=== PATIENT | female | born 1975 | race Caucasian/White ===

== ENCOUNTER 2022-01-30 12:21 | Emergency (ER) | payer OTHER, MEDICAID, SELFPAY ==
[2022-01-30 12:35] VITALS: BP 131/83; PULSE 77; RESP 18; TEMP 36.6; O2SAT 98; BMI 39.9
--- NOTE | 2022-01-30 12:36 | W.ED.PSYCHS ---
HPI - Psych General: Chief Complaint: Psychiatric Symptoms Stated Complaint: psych evalutions Time Seen by Provider: 01/30/22 12:36 History of Present Illness: Ms. Talbot is a 46-year-old lady with reported past psychiatric history of schizoaffective disorder presenting to the emergency department due to history of suicidal thoughts. She reports most of her recent history has been in [place] though she was hospitalized in [place] for approximately 1 week for psychiatric reasons. She received Invega injection which has helped however she left her Depakote and has not had this for approximately 1 week. She reports worsening auditory hallucinations and occasional thoughts of suicide though currently denies any plan or suicidal ideation. She went to [facility] to ask about medication refill and was referred to the emergency department. Intensity symptoms is moderate. Course is worsened. Denies other medical complaints or injuries. No other specific changes in health, exacerbating, or alleviating factors identified. Onset (ago): day(s) Duration: getting worse History of same: Yes Context: not taking psychiatric medications Associated psychiatric symptoms: depression, suicidal ideation, auditory hallucinations and visual hallucinations Review of Systems General: Reports: 10 or more systems reviewed and unremarkable except in HPI and below PFSH ED PFSH: Medical History Depression Social History Substance/Drug Use: unknown Physical Exam Const: COMMON NORMALS: alert GENERAL APPEARANCE: cooperative and well developed HENMT: COMMON NORMALS: normocephalic and atraumatic HEAD & SCALP: normocephalic and atraumatic Eye: COMMON NORMALS: conjunctivae normal CONJUNCTIVA: Yes conjunctivae normal SCLERA: sclerae normal Neck/C-Spine: COMMON NORMALS: supple GENERAL: Yes trachea midline Resp: COMMON NORMALS: clear to auscultation bilaterally EFFORT & INSPECTION: Yes able to speak in complete sentences AUSCULTATION: clear to auscultation bilaterally Cardio: COMMON NORMALS: regular rate and regular rhythm RATE: regular rate RHYTHM: regular rhythm GI: COMMON NORMALS: Soft to palpation PALPATION: Yes Soft to palpation and No Tenderness to palpation present (GI) Extremity: GENERAL: Yes normal exam except as noted and No edema Neuro: COMMON NORMALS: moves all extremities SENSORIUM/ORIENTATION: Yes alert and No Orientation impaired Psych: COMMON NORMALS: mental status grossly normal and Normal thought process present THOUGHT PROCESS: Normal thought process present Course Vital Signs: Vital signs: Vital Signs Temperature 97.8 F 01/30/22 12:35 Pulse Rate 77 01/30/22 12:35 Respiratory Rate 18 01/30/22 12:35 Blood Pressure 131/83 01/30/22 12:35 Pulse Oximetry 98 01/30/22 12:35 Oxygen Delivery Me thod 01/30/22 12:35 MDM - Psych Medical Decision Making 46-year-old lady with psychiatric history presenting to the emergency department for mental health exam. The patient is calm and cooperative, speech is linear and goal oriented, she does not appear to interact with internal stimuli, she denies suicidal or homicidal ideation. I requested outside records for collateral information and initially the patient was unsure about desire to be admitted however subsequently expressed desire to leave. I do not believe based on provided information and information available at time that the patient cannot be held against her will. I will plan to refill her medications however she is leaving AGAINST MEDICAL ADVICE. The patient is oriented to person, place, and time, has the capacity to make decisions regarding the medical care offered. The patient speaks coherently and exhibits no evidence of having an altered level of consciousness or alcohol or drug intoxication to a point that would impair judgment. They respond knowingly to questions about recommended treatment and alternate treatments including no further testing or treatment; participate in diagnostic and treatment decisions by means of rational thought processes; and understand the items of minimum basic medical treatment information with respect to that treatment (the nature and seriousness of the illness, the nature of the treatment, the probable degree and duration of any benefits and risks of any medical intervention that is being recommended, and the consequences of lack of treatment, and the nature, risks, and benefits of any reasonable alternatives). Discharge instructions were provided to the patient. The patient understands they are welcome to return to the hospital at any time to receive the recommended care or any other care at any time, regardless of their ability to pay for such care. Medical Records I reviewed the patient's medical records. Lab Data I reviewed the patient's lab results. Discharge Plan Discharge Patient Disposition: Left Against Medical Advice Clinical Impression: Schizoaffective disorder Condition: Stable Prescriptions: Continued Depakote ER 500 mg Tablet Extended Release 24 Hr 1,000 mg PO DAILY Qty: 30 1RF duloxetine 30 mg Capsule,Delayed Release(Dr/Ec) 30 mg PO BID Qty: 60 1RF No Action clonazepam 0.5 mg Tablet 0.5 mg PO BID PRN (Reason: Anxiety) Discharge Orders: Discharge ED (Routine); Ordered 01/30/22 Ordered By: Kannan Dangelo Discharge Diet: Usual diet Discharge Activity: Increase activity as tolerated Patient Instructions: Divalproex (By mouth) (Depakote, Depakote ER, Depakote Sprinkles), Schizoaffective Disorder (ED) Activity Restrictions/Additional Instructions: Thank you for visiting the emergency department. You were seen and evaluated for medication needs and psychiatric evaluation. I recommend remaining in the emergency department for further psychiatric assessment and obtaining collateral information which you are declining at this time. I will refill your Depakote and duloxetine. Please take this as previously prescribed. Please follow-up with a psychiatric care provider. [facility] [phone] If you or someone you care for is experiencing a psychiatric emergency, please call the crisis hotline ([facility]) 24-hours a day, 7 days a week at [phone]. You may return to an emergency department for any reason at any time. Stand Alone Forms: Against Medical Advice Coding Level of Care Code ED Earth Moving Technician for Butch Friend Exam Comprehensive
--- NOTE | 2022-01-30 14:51 | PC.NURSE ---
Pt says she wants to leave AMA, i told Dr. Dangelo who talked with her, then Dr. Dangelo said it was ok to let her leave AMA with her scripts and paperwork. AMA formed was signed
== END 2022-01-30 14:50 | disposition left against medical advice (07) ==
PROVIDERS: Emergency Provider Emergency Medicine
DX: F25.9 Schizoaffective disorder, unspecified (principal); Z53.21 Procedure and treatment not carried out due to patient leaving prior to being seen by health care provider
CPT/HCPCS: 99283

== ENCOUNTER 2022-02-02 19:13 | Emergency (ER) | payer MEDICARE, OTHER, MEDICAID, SELFPAY ==
[2022-02-02 19:14] VITALS: BMI 39.9
[2022-02-02 19:17] VITALS: BP 125/86; PULSE 98; RESP 20; TEMP 36.8; O2SAT 98
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
[2022-02-02] MEDS: LORazepam 1 mg Tablet 2 MG PO (19:46)
--- NOTE | 2022-02-02 19:46 | ECG_ITS ---
[facility] Test Date: 2022-02-02 Pat Name: Mayi Talbot Department: Room: Gender: Female Radiology Services Manager: : 1975 Requested By: Haylee Liriano Order Number: [id number] Mei MD: Maureen Mary M.D. Measurements Intervals Asher Rate: 102 P: 53 NC: 107 QRS: 61 QRSD: 82 T: 32 QT: 347 QTc: 452 Interpretive Statements SINUS TACHYCARDIA WITH SHORT NC INTERVAL ABNORMAL RHYTHM ECG No previous ECG available for comparison Electronically Signed On 02-03-2022 13:11:25 EBD TEACHER by Maureen Mary M.D. [id number]
[2022-02-02 19:53] LABS: Basophils % 0.5 %; Eosinophils # 0.1 10^3/uL (0.0-0.8); Eosinophils % 1.8 %; Hematocrit 38.6 % (37.0-47.0); Hemoglobin 13.1 g/dL (11.5-15.3); Lymphocytes # 2.6 10^3/uL (0.8-4.8); Lymphocytes % 38.7 %; Mean Corpuscular HGB Conc 33.9 g/dL (30.0-36.0); Mean Corpuscular Hemoglobin 33.2 pg (28.0-34.0); Mean Corpuscular Volume 97.7 fl (81-99); Mean Platelet Volume 9.3 fL (7.4-10.4); Monocytes # 0.7 10^3/uL (0.2-0.9); Monocytes % 11.2 %; Neutrophils # 3.14 10^3/uL (1.8-7.7); Neutrophils % 47.6 %; Nucleated Red Blood Cells % 0 %; Platelet Count 251 10^3/cmm (130-400); Red Blood Count 3.95 10^6/uL (4.1-5.3); Red Cell Distribution Width 11.9 % (12.1-15.1); White Blood Count 6.6 10^3/uL (4.0-10.0)
[2022-02-02 19:55] LABS: HCG Qualitative Urine. Negative (Negative)
[2022-02-02 19:59] LABS: Amphetamines Screen Urine Negative (Negative); Barbiturates Screen Urine Negative (Negative); Benzodiazepines Screen Urine Negative (Negative); Cocaine Screen Urine Negative (Negative); Opiate Screen Urine Negative (Negative); PCP Screen Urine Negative (Negative); THC Screen Urine Negative (Negative)
[2022-02-02 20:04] LABS: Alanine Aminotransferase 14 U/L (0-33); Albumin Level 3.8 g/dL (3.5-5.2); Alkaline Phosphatase 89 U/L (35-105); Anion Gap 11.8 (5-19); Aspartate Amino Transferase 15 U/L (0-32); Blood Urea Nitrogen 6 mg/dL (6-20); Carbon Dioxide 27 mmol/L (22-29); Chloride 103 mmol/L (98-107); Globulin 3.1 g/dL (1.3-4.6); Glomerular Filtration Rate 90.9 mL/min (90-130); Glucose 89 mg/dL (65-115); Osmolality Calculated 283 mOsm/kg (285-295); Potassium 3.8 mmol/L (3.5-5.1); Sodium 138 mmol/L (136-145); Total Bilirubin 0.2 mg/dL (0.15-1.2); Total Protein 6.9 g/dL (6.6-8.7)
[2022-02-02 20:06] LABS: Acetaminophen < 5.0 ug/mL (10-30); Alcohol Level < 10 mg/dL (0-10); Salicylate < 0.3 mg/dL (3-10)
[2022-02-02 20:55] LABS: SARS Covid-2 Antigen Negative (Negative)
[2022-02-03 00:44] LABS: Add Urine Microscopic? NO; Charge for UA Resulting for Rev
[2022-02-03 00:51] LABS: Bilirubin Urine Neg (Negative); Blood Urine Neg (Negative); Glucose Urine UA Norm (Normal); Ketones Urine Negative (Negative); Leukocyte Esterase Urine Negative (Negative); Nitrate Urine Negative (Negative); Protein Urine Neg (Negative); Specific Gravity, Urine 1.015 (1.005-1.030); Urine Appearance Clear (CLEAR); Urine Color Yellow (Yellow); Urobilinogen Urine Norm (Negative); pH Urine 6.5 (5-7)
== END 2022-02-03 07:42 | disposition home or self-care (01) ==
PROVIDERS: Emergency Provider Emergency Medicine
DX: R45.851 Suicidal ideations (principal); Z20.822 Contact with and (suspected) exposure to COVID-19
CPT/HCPCS: 80053; 80306; 80307; 81003; 81025; 85025; 87426; 93005; 99285

== ENCOUNTER 2022-10-14 16:08 | Inpatient (IN) | payer MEDICARE, MEDICAID, SELFPAY ==
--- NOTE | 2022-10-14 16:24 | W.ED.PSYCHS ---
HPI - Psych General: Chief Complaint: Psychiatric Symptoms Stated Complaint: PSYCH EVAL Time Seen by Provider: 10/14/22 16:13 Source: patient Mode of arrival: ambulatory History of Present Illness: 47-year-old female presents emergency room complaining of auditory hallucinations. Voices are telling her to harm herself she has not done anything to advance lethality. She has recently at crisis stabilization unit. He states she has had a started on a new medication I suspect it was the Depakote. Patient is supposed to be on Zyprexa she tells me she just stopped taking seem like it the way it made her feel she has not been taking it for several days now home. complaint: suicidal ideation Onset (ago): day(s) Duration: constant History of same: Yes Relieving factors: none Exacerbating factors: none Associated symptoms: Reports auditory hallucinations and suicidal ideation; Deny visual hallucinations, delusions, depression, homicidal ideation, racing thoughts or other If self harm: admits thoughts of self harm Review of Systems Const: Denies: fever(s), chills, body aches, change in appetite, fatigue or malaise ENMT: Denies: throat pain, ear or mastoid pain, nasal discharge or nasal congestion Card: Denies: chest pain, edema, dyspnea on exertion or orthopnea Resp: Denies: dyspnea, productive cough or non-productive cough GI: Denies: abdominal pain, nausea or vomiting : Denies: flank pain, difficulty voiding, dysuria, urinary frequency or urinary urgency Skin/Breast: Denies: rash or pruritus Psych: Reports: auditory hallucinations and suicidal ideation; Denies: depression, visual hallucinations or homicidal ideation [facility] ED PFSH: Medical History Depression Social History Substance/Drug Use: unknown Physical Exam Const: GENERAL APPEARANCE: cooperative and comfortable ORIENTATION/CONSCIOUSNESS: Yes awake, Yes oriented to person, Yes oriented to place and Yes oriented to time HENMT: COMMON NORMALS: normocephalic, atraumatic and hearing grossly normal bilaterally HEAD & SCALP: normocephalic and atraumatic Resp: COMMON NORMALS: normal respiratory effort, No retractions, No use of accessory muscles and clear to auscultation bilaterally AUSCULTATION: clear to auscultation bilaterally Cardio: COMMON NORMALS: regular rate, regular rhythm and No murmurs present (Cardio) RATE: regular rate RHYTHM: regular rhythm GI: COMMON NORMALS: Soft to palpation and No hepatosplenomegaly present AUSCULTATION: Yes normoactive bowel sounds PALPATION: Yes Soft to palpation, No Tenderness to palpation present (GI), No Guarding due to palpation present (GI) and Yes No hepatosplenomegaly present Extremity: COMMON NORMALS: normal to inspection, capillary refill normal, no clubbing, cyanosis or edema, no calf tenderness and no pedal edema Neuro: SENSORIUM/ORIENTATION: Yes oriented to person, Yes oriented to place and Yes oriented to time Psych: THOUGHT CONTENT: No delusions Skin: COMMON NORMALS: no rashes or lesions noted GENERAL SKIN EXAM: no rashes or lesions noted Course Vital Signs: Vital signs: Vital Signs Temperature 98.0 F 10/14/22 17:05 Pulse Rate 96 10/14/22 17:05 Blood Pressure 115/73 10/14/22 17:05 Pulse Oximetry 97 10/14/22 17:05 Oxygen Delivery Me thod Room Air 10/14/22 17:05 MDM - Psych Medical Decision Making Patient with auditory hallucinations and suicidal ideations recently stopped all her medications. 3 days ago she was at crisis stabilization emergent not seem to help months. Discussed Dr. Hanley we will admit 96-hour hold for auditory hallucinations and suicidal thoughts was completed. Medical Records I reviewed the patient's medical records. Lab Data I reviewed the patient's lab results. 10/14/22 17:26 10/14/22 17:26 Laboratory Results WBC 9.4 10^3/uL (4.0-10.0) 10/14/22 17: RBC 4.32 10^6/uL (4.1-5.3) 10/14/22 17:26 Hgb 14.1 g/dL (11.5-15.3) 10/14/22 17: Hct 41.7 % (37.0-47.0) 10/14/22 17: MCV 96.5 fl (81-99) 10/14/22 17: MCH 32.6 pg (28.0-34.0) 10/14/22 17: MCHC 33.8 g/dL (30.0-36.0) 10/14/22 17: RDW 12.6 % (12.1-15.1) 10/14/22 17:26 Plt Count 289 10^3/cmm (130-400) 10/14/22 17: MPV 9.1 fL (7.4-10.4) 10/14/22 17:26 Neut % (Auto) 62.6 % 10/14/22 17: Lymph % (Auto) 27.9 % 10/14/22 17:26 [place] % (Auto) 7.1 % 10/14/22 17:26 Eos % (Auto) 1.9 % 10/14/22 17: Baso % (Auto) 0.3 % 10/14/22 17: Neut # (Auto) 5.85 10^3/uL (1.8-7.7) 10/14/22 17: Lymph # (Auto) 2.6 10^3/uL (0.8-4.8) 10/14/22 17:26 [place] # (Auto) 0.7 10^3/uL (0.2-0.9) 10/14/22 17:26 Eos # (Auto) 0.2 10^3/uL (0.0-0.8) 10/14/22 17:26 Baso # (Auto) 0.0 10^3/uL (0.0-0.1) 10/14/22 17:26 Nucleated RBC % (auto) 0 % 10/14/22 17: Nucleated RBCs # 0.0 /100WBC 10/14/22 17:26 Urine Color Straw (Yellow) 10/14/22 16:20 Urine Appearance Clear (CLEAR) 10/14/22 16:20 Urine pH 6 (5-7) 10/14/22 16:20 Ur Specific [place] 1.005 (1.005-1.030) 10/14/22 16:20 Urine Protein Neg (Negative) 10/14/22 16:20 Urine Glucose (UA) Norm (Normal) 10/14/22 16:20 Urine Ketones Negative (Negative) 10/14/22 16:20 Urine Blood Neg (Negative) 10/14/22 16:20 Urine Nitrate Negative (Negative) 10/14/22 16:20 Urine Bilirubin Neg (Negative) 10/14/22 16:20 Urine Urobilinogen Norm mg/dL (Negative) 10/14/22 16:20 Ur Leukocyte Esterase Negative (Negative) 10/14/22 16:20 Urine Opiates Screen Negative ng/mL (Negative) 10/14/22 16:20 Ur Barbiturates Screen Negative ng/mL (Negative) 10/14/22 16:20 Ur Phencyclidine Scrn Negative ng/mL (Negative) 10/14/22 16:20 Ur Amphetamines Screen Negative ng/mL (Negative) 10/14/22 16:20 U Benzodiazepines Scrn Negative ng/mL (Negative) 10/14/22 16:20 Urine Cocaine Screen Negative ng/mL (Negative) 10/14/22 16:20 U Marijuana (THC) Screen Negative ng/mL (Negative) 10/14/22 16:20 Discharge Plan Discharge Condition: Stable Prescriptions: No Action hydroxyzine HCl 25 mg tablet 25 mg PO Q8H PRN (Reason: Itching) clonazepam 0.25 mg tablet,disintegrating 0.25 mg PO BID Coding Level of Care Code ED Box Cutter for Butch Friend
[2022-10-14 16:36] LABS: Add Urine Microscopic? NO; Charge for UA Resulting for Rev
[2022-10-14 16:49] LABS: Bilirubin Urine Neg (Negative); Blood Urine Neg (Negative); Glucose Urine UA Norm (Normal); Ketones Urine Negative (Negative); Leukocyte Esterase Urine Negative (Negative); Nitrate Urine Negative (Negative); Protein Urine Neg (Negative); Specific Gravity, Urine 1.005 (1.005-1.030); Urine Appearance Clear (CLEAR); Urine Color Straw (Yellow); Urobilinogen Urine Norm (Negative); pH Urine 6 (5-7)
--- NOTE | 2022-10-14 16:53 | PC.PHAR ---
pt states she takes clonazepam 0.25mg bid ext shows last filled 10/10/22 20d/s 0.25mg bid prn-pt states she had 2 doses of hydroxyzine hcl 25mg today-pt states she is only taking the 2 medications entered
[2022-10-14 17:05] VITALS: BP 115/73; PULSE 96; TEMP 36.7; O2SAT 97
[2022-10-14 17:05] LABS: Amphetamines Screen Urine Negative (Negative); Barbiturates Screen Urine Negative (Negative); Benzodiazepines Screen Urine Negative (Negative); Cocaine Screen Urine Negative (Negative); Opiate Screen Urine Negative (Negative); PCP Screen Urine Negative (Negative); THC Screen Urine Negative (Negative)
[2022-10-14 17:38] LABS: Basophils % 0.3 %; Eosinophils # 0.2 10^3/uL (0.0-0.8); Eosinophils % 1.9 %; Hematocrit 41.7 % (37.0-47.0); Hemoglobin 14.1 g/dL (11.5-15.3); Lymphocytes # 2.6 10^3/uL (0.8-4.8); Lymphocytes % 27.9 %; Mean Corpuscular HGB Conc 33.8 g/dL (30.0-36.0); Mean Corpuscular Hemoglobin 32.6 pg (28.0-34.0); Mean Corpuscular Volume 96.5 fl (81-99); Mean Platelet Volume 9.1 fL (7.4-10.4); Monocytes # 0.7 10^3/uL (0.2-0.9); Monocytes % 7.1 %; Neutrophils # 5.85 10^3/uL (1.8-7.7); Neutrophils % 62.6 %; Nucleated Red Blood Cells % 0 %; Platelet Count 289 10^3/cmm (130-400); Red Blood Count 4.32 10^6/uL (4.1-5.3); Red Cell Distribution Width 12.6 % (12.1-15.1); White Blood Count 9.4 10^3/uL (4.0-10.0)
[2022-10-14] MEDS: LORazepam 2 mg Tablet PO (17:42)
[2022-10-14 17:58] LABS: Alanine Aminotransferase 11 U/L (0-33); Albumin Level 4.1 g/dL (3.5-5.2); Alkaline Phosphatase 100 U/L (35-105); Anion Gap 13.2 (5-19); Aspartate Amino Transferase 12 U/L (0-32); Blood Urea Nitrogen 8 mg/dL (6-20); Calcium 9.4 mg/dL (8.5-10.5); Carbon Dioxide 27 mmol/L (22-29); Chloride 103 mmol/L (98-107); Globulin 2.2 g/dL (1.3-4.6); Glomerular Filtration Rate 90.5 mL/min (90-130); Glucose 92 mg/dL (65-115); Osmolality Calculated 286 mOsm/kg (285-295); Potassium 4.2 mmol/L (3.5-5.1); Sodium 139 mmol/L (136-145); Total Bilirubin 0.2 mg/dL (0.15-1.2); Total Protein 6.3 g/dL (6.6-8.7)
[2022-10-14 17:59] LABS: Acetaminophen < 5.0 ug/mL (10-30); Alcohol Level < 10 mg/dL (0-10); Salicylate < 0.3 mg/dL (3-10)
[2022-10-14] MEDS: OLANZapine 10 mg TABLET PO (18:19)
[2022-10-14 18:25] LABS: Valproic Acid Level 2.8 ug/mL (50-100)
[2022-10-14 18:30] VITALS: RESP 18
[2022-10-14 22:00] VITALS: BP 125/84; PULSE 101; RESP 18; TEMP 36.7; O2SAT 98
[2022-10-15 06:00] VITALS: RESP 16
[2022-10-15] MEDS: CLONazepam 0.5 mg Tablet 0.25 MG PO ×2 (09:45→16:37)
[2022-10-15] MEDS: ibuprofen 600 mg Tablet PO (09:45)
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
[2022-10-15] MEDS: hyDROXYzine 25 mg Capsule 50 MG PO (10:09)
[2022-10-15] MEDS: nicotine 2 mg Gum BUCCAL ×3 (10:10→16:06)
[2022-10-15 14:00] VITALS: BP 116/78; PULSE 90; RESP 16; TEMP 36.8; O2SAT 96
[2022-10-15] MEDS: OLANZapine 5 mg ODT PO (16:37)
[2022-10-15 19:33] VITALS: BP 130/82; PULSE 79; RESP 16; TEMP 36.7; O2SAT 94
[2022-10-15] MEDS: OLANZapine 10 mg TABLET PO (20:23)
[2022-10-16 06:00] VITALS: BP 94/60; PULSE 68; RESP 16; TEMP 36.5; O2SAT 94
[2022-10-16] MEDS: nicotine 2 mg Gum BUCCAL ×5 (06:17→18:07)
[2022-10-16] MEDS: hyDROXYzine 25 mg Capsule 50 MG PO ×2 (06:41→18:07)
[2022-10-16] MEDS: CLONazepam 0.5 mg Tablet 0.25 MG PO ×2 (08:15→20:30)
--- NOTE | 2022-10-16 08:20 | PC.NURSE ---
shift assessment denies SI/HI but stated she is hearing voices stated that isn't normal for her, she is upset that she isn't getting Zyprexa scheduled twice daily like she asked the physician yesterday. this nurse assured that patient would be speaking to physician again this morning & she could inquire about medications
[2022-10-16] MEDS: OLANZapine 5 mg ODT PO (11:29)
--- NOTE | 2022-10-16 11:30 | PC.NURSE ---
PT CAME TO NURSES STATION COMPLAINING OF AUDITORY HALLUCINATIONS. PT WAS GIVEN ZYDIS SHE IS ALLERGIC TO HALDOL.
[2022-10-16] MEDS: OLANZapine 5 mg TABLET PO (13:02)
[2022-10-16 13:47] VITALS: BP 96/57; PULSE 73; RESP 16; TEMP 36.7; O2SAT 94
[2022-10-16] MEDS: ibuprofen 600 mg Tablet PO (15:25)
--- NOTE | 2022-10-16 18:07 | PC.NURSE ---
PRN VISTARIL 50 MG GIVEN PO PER PT C/O STATED ANXIETY
--- NOTE | 2022-10-16 18:13 | W.PM.NPUPNS ---
Subjective NPU Subjective: Patient presented today reporting that she has had a dampening with the voices. She reports that the addition of the morning Zyprexa has been helpful and overall resuming Zyprexa has been the right decision. She denies any problematic side effects or concerns at this time and was quite appreciative for the help that she is got here in the hospital. Mental Status Exam MSE Comments: This is an overweight versus obese, white female, in hospital scrubs, with limited grooming and eye contact. No abnormal movements, except for resolving psychomotor agitation, with less rocking back and forth during the entirety of the exam. Mostly cooperative with exam in mild to moderate distress. Speech was slightly decreased rate and volume. Mood described as a little better; affect congruent. Thought process, organized. Thought content: patient denied any suicidal or homicidal ideation, she endorses paranoia and hallucinations. Attention, concentration, and memory appeared intact, but none were formally tested. Alert and oriented times three. Insight, judgment, and impulse control are limited versus impaired. Vitals/I&O/Wt Last Vital Signs Temp 98.1 F 10/16/22 20:50 Pulse 63 10/16/22 20:50 Resp 17 10/16/22 20:50 BP 95/61 10/16/22 20:50 Pulse Ox 95 10/16/22 20:50 O2 Del Method Room Air 10/16/22 13:47 Data NPU 10/14/22 17:26 10/14/22 17:26 A&P Assessment and plan (1) Depression: (2) Psychosis: (3) Schizophrenia: (4) Methamphetamine use disorder, severe, in sustained remission: (5) PTSD (post-traumatic stress disorder): Plan This is a 47-year-old, white female, with a long history of psychosis and depression, not currently on medication, who presents to the hospital because of hearing voices, with a willingness to restart her medication. 1. Restarted Zyprexa 10 mg p.o. nightly with addition of 5 mg every morning. 2. Work with social work team on logistics and her living situation. 3. Encourage individual, group, and milieu therapy. 4. Continue q-15-minute checks for safety. Involuntary Hold Information 96 Hour Hold: 96 Hour Involuntary Admission: Yes 96 Hour Hold Ending Date: 10/20/22 96 Hour Hold Ending Time: 22:25 Attestations NPU Medical Necessity Statement*: Inpatient hospitalization is medically necessary and the clinically appropriate intervention, at this time. We will monitor medications and make changes as indicated. Likely length of stay is 2-4 days. Coding Level of Care Code Acute Code for [facility] Fwd Diagnoses Depression F32.A Psychosis F29 Schizophrenia F20.9 Methamphetamine use disorder, severe, in sustained remission F15.21 PTSD (post-traumatic stress disorder) F43.10
[2022-10-16] MEDS: OLANZapine 10 mg TABLET PO (20:30)
[2022-10-16 20:50] VITALS: BP 95/61; PULSE 63; RESP 17; TEMP 36.7; O2SAT 95
[2022-10-16] MEDS: calcium carbonate 500 mg Chew Tablet 1000 MG PO (22:43)
[2022-10-17 06:00] VITALS: BP 92/59; PULSE 71; RESP 16; O2SAT 95
[2022-10-17] MEDS: nicotine 2 mg Gum BUCCAL ×4 (06:31→14:58)
[2022-10-17] MEDS: hyDROXYzine 25 mg Capsule 50 MG PO ×2 (06:44→13:07)
[2022-10-17] MEDS: OLANZapine 5 mg TABLET PO (08:21)
[2022-10-17] MEDS: CLONazepam 0.5 mg Tablet 0.25 MG PO ×2 (08:21→21:07)
[2022-10-17 14:00] VITALS: BP 99/65; PULSE 83; RESP 16; TEMP 36.6; O2SAT 93
--- NOTE | 2022-10-17 18:20 | P.NPUPN_ITS ---
Subjective NPU Subjective: Patient presents today reporting that she is feeling a lot better. She reports the medication has helped and she denies side effects. We discussed the plan to increase the Zyprexa to 10 mg p.o. twice daily after discussion of the risks, benefits and alternatives she understood and agreed to proceed as is documented in this note. She is currently in [facility] and her plan will be to return there and she has something about losing her bed so we discussed making sure that everything was lined up in the morning with a plan to discharge in the next 48 hours. Mental Status Exam MSE Comments: This is an overweight versus obese, white female, in hospital scrubs, with limited grooming and eye contact. No abnormal movements, except for mild psychomotor retardation. Cooperative with exam in mild distress. Speech was slightly decreased rate and volume. Mood described as better; affect congruent. Thought process, organized. Thought content: patient denied any suicidal or homicidal ideation, she endorses paranoia and hallucinations. Attention, concentration, and memory appeared intact, but none were formally tested. Alert and oriented times three. Insight, judgment, and impulse control are limited. Vitals/I&O/Wt Last Vital Signs Temp 98.5 F 10/17/22 21:39 Pulse 85 10/17/22 21:39 Resp 17 10/17/22 21:39 BP 121/85 10/17/22 21:39 Pulse Ox 95 10/17/22 21:39 O2 Del Method Room Air 10/17/22 21:39 Data NPU 10/14/22 17:26 10/14/22 17:26 A&P Assessment and plan (1) Depression: (2) Psychosis: (3) Schizophrenia: (4) Methamphetamine use disorder, severe, in sustained remission: (5) PTSD (post-traumatic stress disorder): Plan This is a 47-year-old, white female, with a long history of psychosis and depres jadon, not currently on medication, who presents to the hospital because of hearing voices, with a willingness to restart her medication. 1. Restarted Zyprexa 10 mg p.o. nightly with addition of 5 mg every morning. Will increase to 10 mg p.o. twice daily. 2. Work with social work team on logistics and her living situation. 3. Encourage individual, group, and milieu therapy. 4. Continue q-15-minute checks for safety. Involuntary Hold Information 96 Hour Hold: 96 Hour Involuntary Admission: Yes 96 Hour Hold Ending Date: 10/20/22 96 Hour Hold Ending Time: 22:25 Attestations NPU Medical Necessity Statement*: Inpatient hospitalization is medically necessary and the clinically appropriate intervention, at this time. We will monitor medications and make changes as indicated. Likely length of stay is 1-3 days. Coding Level of Care Code Acute Code for [facility] Fwd Diagnoses Depression F32.A Psychosis F29 Schizophrenia F20.9 Methamphetamine use disorder, severe, in sustained remission F15.21 PTSD (post-traumatic stress disorder) F43.10
[2022-10-17] MEDS: OLANZapine 10 mg TABLET PO (21:02)
[2022-10-17] MEDS: ibuprofen 600 mg Tablet PO (21:02)
[2022-10-17] MEDS: calcium carbonate 500 mg Chew Tablet 1000 MG PO (21:03)
[2022-10-17 21:39] VITALS: BP 121/85; PULSE 85; RESP 17; TEMP 36.9; O2SAT 95
[2022-10-18 06:43] VITALS: BP 89/55; PULSE 70; RESP 16; O2SAT 91
[2022-10-18] MEDS: CLONazepam 0.5 mg Tablet 0.25 MG PO (07:45)
[2022-10-18] MEDS: OLANZapine 10 mg TABLET PO (07:45)
[2022-10-18] MEDS: nicotine 2 mg Gum BUCCAL ×3 (07:46→14:48)
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
[2022-10-18 13:53] VITALS: BP 89/55; PULSE 70; RESP 16; TEMP 36.9; O2SAT 91
== END 2022-10-18 17:00 | disposition home or self-care (01) | DRG 885 ==
LOC: ER 17:01 → NP 21:00
PROVIDERS: Admitting Provider Psychiatry & Neurology Psychiatry; Emergency Provider Family Medicine; Visit Provider Psychiatry & Neurology Psychiatry
DX: F29 Unspecified psychosis not due to a substance or known physiological condition (principal); R45.851 Suicidal ideations; F32.A Depression, unspecified; F17.210 Nicotine dependence, cigarettes, uncomplicated; Z81.8 Family history of other mental and behavioral disorders; Z62.810 Personal history of physical and sexual abuse in childhood; Z81.4 Family history of other substance abuse and dependence; Z91.128 Patient's intentional underdosing of medication regimen for other reason; F15.21 Other stimulant dependence, in remission
CPT/HCPCS: 36415; 80053; 80164; 80306; 80307; 81003; 85025; 97150; 97165; 99238; 99285